=== PATIENT | male | born 1950 | race Caucasian/White ===

== ENCOUNTER → 2016-11-19 | Outpatient (REF) | payer MEDICARE, OTHER ==
[~2016-11-19] MED LIST: ACET-654 PO; ADVAIR INH; ALBU17IN INH; ALBU17IN2 INH; ALDA25TA2 PO; ALPR; ALPRPOW4 PO; AMLO25TA PO; ASPI1TAB PO; ASPI325T PO; ASPI325T5 PO; ASPI81TA7 PO; ASPI81TAEC PO; AZIT250T3 PO; CARV12.5 PO; CARV25TA PO; CLOP75TA2 PO; CORE25TA PO; D400400C PO; DIGO0.12 PO; ELIQ5TAB PO; FLOM5CAP PO; FURO20TA2 PO; FURO40TA2 PO; GLUC500T PO; ISOS30TAB PD; ISOS30TAB PO; LASI20TA PO; LEVA500T PO; LEVA750T PO; LIPI80TA PO; LISI40TAB PO; METF-414 PO; METF500T PO; METFORMIN PO; METH10TA2 PO; MYRB50TA PO; NEBUMIS2 INH; NITR4TASL SL; NORVASC; NORVASC PO; PRAV40TA2 PO; PRED10PA PO; PRED10TA PO; PRED20TA PO; PRED50TA PO; RANI150T PO; RANI300T PO; SPIR1CAP INH; SPIR25TA2 PO; SPIRIVA INH; SYMB16INH INH; TAMS0.4C2 PO; TYLENOL PO; VENTAER INH; VITA-130 PO; VITA100066 PO; XANA0.5T PO; ZINC50TA PO
== END ==
LOC: M SMT 16:50
PROVIDERS: ATTEND Nurse Practitioner Women's Health
DX: R39.15 Urgency of urination (principal)
CPT/HCPCS: 51798; 81001; 87086; G0463

== ENCOUNTER → 2017-12-01 | Outpatient (CLI) | payer MEDICARE, OTHER ==
[2017-12-01 18:07] LABS: DIGOXIN LEVEL 0.6 NG/ML (0.5-2.0)
== END ==
LOC: M WUC 15:16
DX: I48.0 Paroxysmal atrial fibrillation (principal); Z95.810 Presence of automatic (implantable) cardiac defibrillator; E78.5 Hyperlipidemia, unspecified; I11.0 Hypertensive heart disease with heart failure; I50.9 Heart failure, unspecified; Z98.61 Coronary angioplasty status; I42.0 Dilated cardiomyopathy
CPT/HCPCS: 80162

== ENCOUNTER 2018-05-28 11:39 | Emergency (ER) | payer MEDICARE, OTHER | END 2018-05-28 12:57 | disposition home or self-care (01) | LOC: M ED 11:39 | DX: L03.115 Cellulitis of right lower limb (principal) | CPT/HCPCS: 73590 ==

== ENCOUNTER 2018-06-01 15:08 | Emergency (ER) | payer MEDICARE, OTHER ==
[2018-06-01] MEDS: CLINDAMYCIN 600 MG in APPROPRIATE DILUENT 1 EA IV (16:29)
[2018-06-01 16:38] LABS: BASO % 0.2 % (0.0-1.0); EOS # 0.3 10^3/uL (0.0-0.50); EOS % 2.8 % (0.0-3.0); HEMATOCRIT 47.1 % (42.0-52.0); HEMOGLOBIN 15.5 g/dl (13.5-17.5); IMMATURE GRANULOCYTE % 0.3 % (0-3.0); LYMPH # 1.4 10^3/uL (1.5-4.5); LYMPH % 15.4 % (24.0-44.0); MEAN CORPUSCULAR HEMOGLOBIN 30.6 pg (27.0-33.0); MEAN CORPUSCULAR HGB CONC 32.9 g/dl (32.0-36.5); MEAN CORPUSCULAR VOLUME 92.9 fl (80.0-96.0); MONO # 1.1 10^3/uL (0.0-0.8); NEUTROPHILS # 6.4 10^3/uL (1.8-7.7); NEUTROPHILS % 69.3 % (36.0-66.0); PLATELET COUNT, AUTOMATED 139 10^3/uL (150-450); RED BLOOD COUNT 5.07 10^6/uL (4.30-6.10); RED CELL DISTRIBUTION WIDTH 12.7 % (11.5-14.5); WHITE BLOOD COUNT 9.3 10^3/uL (4.0-10.0)
[2018-06-01 17:07] LABS: ANION GAP 4 MEQ/L (8-16); BLOOD UREA NITROGEN 12 MG/DL (7-18); CALCIUM LEVEL 8.6 MG/DL (8.8-10.2); CARBON DIOXIDE LEVEL 42 MEQ/L (21-32); CHLORIDE LEVEL 86 MEQ/L (98-107); CREATININE FOR GFR 0.78 MG/DL (0.70-1.30); GLOMERULAR FILTRATION RATE > 60.0 (>49); GLUCOSE, FASTING 87 MG/DL (70-100); POTASSIUM SERUM 4.4 MEQ/L (3.5-5.1); SODIUM LEVEL 132 MEQ/L (136-145)
== END 2018-06-01 18:03 | disposition home or self-care (01) ==
LOC: M ED 15:08
DX: L03.115 Cellulitis of right lower limb (principal); J44.9 Chronic obstructive pulmonary disease, unspecified; B19.20 Unspecified viral hepatitis C without hepatic coma; K21.9 Gastro-esophageal reflux disease without esophagitis; K74.60 Unspecified cirrhosis of liver; I25.10 Atherosclerotic heart disease of native coronary artery without angina pectoris; I25.2 Old myocardial infarction; Z79.899 Other long term (current) drug therapy; Z79.84 Long term (current) use of oral hypoglycemic drugs; Z79.82 Long term (current) use of aspirin; Z79.01 Long term (current) use of anticoagulants; Z88.0 Allergy status to penicillin; Z88.5 Allergy status to narcotic agent
CPT/HCPCS: 93971

== ENCOUNTER 2018-06-12 15:20 | Emergency (ER) | payer OTHER, MEDICARE ==
[2018-06-12] MEDS: ceFAZolin SOD 1 GM in D5W MINI-BAG PLUS 50 ML IV (16:58)
[2018-06-12 16:59] LABS: BASO % 0.5 % (0.0-1.0); EOS # 0.2 10^3/uL (0.0-0.50); EOS % 2.6 % (0.0-3.0); HEMATOCRIT 48.8 % (42.0-52.0); HEMOGLOBIN 15.6 g/dl (13.5-17.5); IMMATURE GRANULOCYTE % 0.3 % (0-3.0); LYMPH # 1.4 10^3/uL (1.5-4.5); MEAN CORPUSCULAR HEMOGLOBIN 30.6 pg (27.0-33.0); MEAN CORPUSCULAR VOLUME 95.7 fl (80.0-96.0); MONO # 0.9 10^3/uL (0.0-0.8); NEUTROPHILS # 6.3 10^3/uL (1.8-7.7); NEUTROPHILS % 70.6 % (36.0-66.0); PLATELET COUNT, AUTOMATED 182 10^3/uL (150-450); RED CELL DISTRIBUTION WIDTH 12.7 % (11.5-14.5); WHITE BLOOD COUNT 8.9 10^3/uL (4.0-10.0)
[2018-06-12 17:19] LABS: ANION GAP 3 MEQ/L (8-16); BLOOD UREA NITROGEN 15 MG/DL (7-18); C REACTIVE PROTEIN QUANTITATIV 1.83 MG/DL (0.00-0.30); CALCIUM LEVEL 8.6 MG/DL (8.8-10.2); CARBON DIOXIDE LEVEL 41 MEQ/L (21-32); CHLORIDE LEVEL 89 MEQ/L (98-107); CREATININE FOR GFR 0.77 MG/DL (0.70-1.30); GLOMERULAR FILTRATION RATE > 60.0 (>49); GLUCOSE, FASTING 88 MG/DL (70-100); POTASSIUM SERUM 4.4 MEQ/L (3.5-5.1); SODIUM LEVEL 133 MEQ/L (136-145)
== END 2018-06-12 19:05 | disposition home or self-care (01) ==
LOC: M ED 15:20
DX: L03.115 Cellulitis of right lower limb (principal); S80.811D Abrasion, right lower leg, subsequent encounter; Z79.899 Other long term (current) drug therapy; Z79.82 Long term (current) use of aspirin; Z79.01 Long term (current) use of anticoagulants; Z88.0 Allergy status to penicillin; Z88.5 Allergy status to narcotic agent
CPT/HCPCS: J0690